=== PATIENT | female | born 2000 | race African-American/Black ===

== ENCOUNTER 2023-08-22 08:49 | Outpatient (REF) | payer BC, SELFPAY ==
--- NOTE | ~2023-08-22 | US_ITS ---
EXAMINATION: US PELVIS CLINICAL INFORMATION: Irregular menses LMP 08/03/2023 COMPARISON: None available. TECHNIQUE: Ultrasound of the pelvis is performed using both transabdominal and transvaginal transducers along with Doppler. Transvaginal imaging is performed due to inadequate visualization transabdominally. FINDINGS: Uterus: The uterus is anteverted and measures 7.0 x 3.8 x 5.2 cm. No focal fibroid The endometrial thickness is 1.0 cm. Adnexa: Both ovaries are visualized. There is normal color flow to the adnexa. There is no ovarian torsion. Right ovary measures 2.0 x 4.2 x 2.4 cm. Volume 10.5 mL. Multiple subcentimeter follicles are seen within the right ovary. Left ovary measures 2.0 x 1.8 x 1.7 cm. Volume 3.2 mL. Multiple subcentimeter follicles are seen within the left ovary. Probable simple left paraovarian cyst measuring 1.8 cm. There is a moderate amount of free fluid within the cul-de-sac. US/US pelvic and transvaginal IMPRESSION: 1. Normal uterus. 2. Enlarged right ovary. This raises the possibility of polycystic ovarian syndrome 3. Multiple subcentimeter follicles within both ovaries. 4. Probable simple left paraovarian cyst measuring 1.8 cm. This is almost certainly a benign cyst. No imaging follow-up is recommended.
== END 2023-08-22 08:50 | disposition home or self-care (01) ==
LOC: HO.UMASIMG 08:49
PROVIDERS: Visit Provider Nurse Practitioner Women's Health
DX: N92.6 Irregular menstruation, unspecified (principal); N76.0 Acute vaginitis
CPT/HCPCS: 76830; 76856

== ENCOUNTER 2024-07-18 06:39 | Outpatient (REF) | payer BC, SELFPAY ==
--- NOTE | ~2024-07-18 | US_ITS ---
CLINICAL HISTORY: PAIN WITH INTERCOURSE, MOSTLY ON LEFT SIDE US pelvis transabdominal and transvaginal Comparison: None Findings: Transabdominal scanning performed for overall anatomy. Transvaginal scanning performed for additional detail. Anteverted uterus is 7.3 cm length. Normal myometrium. Endometrium 4.8 mm thickness. No lesions. Right ovary 2.6 x 2.2 x 2 cm. Left ovary 2.5 x 1.6 x 1.3 cm. Normal color Doppler of both ovaries. No free fluid. IMPRESSION: 1. Normal pelvic ultrasound This document has been electronically signed by: Raymond Bloaños MD on 07/19/2024 08:29:23
== END 2024-07-18 06:40 | disposition home or self-care (01) ==
LOC: HO.UMASIMG 06:39
PROVIDERS: Visit Provider Nurse Practitioner Women's Health
DX: R10.2 Pelvic and perineal pain (principal); N76.0 Acute vaginitis
CPT/HCPCS: 76830; 76856

== ENCOUNTER → 2024-07-18 11:30 | Outpatient (BNV) | payer BC, SELFPAY | PROVIDERS: Visit Provider Specialist | DX: N94.19 Other specified dyspareunia (principal) | CPT/HCPCS: 76830; 76856 ==